=== PATIENT | male | born 1975 | race Caucasian/White ===

== ENCOUNTER 2018-11-24 13:11 | Emergency (ER) | payer MEDICARE, OTHER ==
[2018-11-24 13:22] VITALS: BP 123/82; PULSE 80; RESP 16; TEMP 97.7
[2018-11-24] MEDS ORDERED: KETOROLAC 30 MG/ML 1 ML VIAL IM STA (14:04)
--- NOTE | 2018-11-24 14:06 | ED ---
General Adult HPI - General Chief complaint: Extremity Problem,Nontraumatic Stated complaint: Rt wrist pain Source: patient, RN notes reviewed Mode of arrival: ambulatory Limitations: no limitations - History of Present Illness Initial comments: Patient is a 43-year-old male who presents to the emergency department with his mother with complaint of right wrist and left elbow pain. He states he has been having this pain off and on for quite a long time, but that his right wrist pain has worsened in the past 3 days. He has been taking Ten Sleep at home which is prescribed for his back, per patient. He states he was chopping wood prior to his right wrist hurting worse. Denies numbness and tingling. Patient denies any recent fever, chills, shortness of breath, chest pain, abdominal pain , nausea or vomiting, headaches or visual changes, or any other complaints. - Related Data Home Medications Medication Instructions Recorded Confirmed No Known Home Medications 11/24/18 11/24/18 Allergies Allergy/AdvReac Type Severity Reaction Status Date / Time No Known Allergies Allergy Verified 11/24/18 13:22 Review of Systems ROS Statement: Those systems with pertinent positive or pertinent negative responses have been documented in the HPI. ROS Other: All systems not noted in ROS Statement are negative. Past Medical History Past Medical History: Sleep Apnea/CPAP/BIPAP Additional Past Medical History / Comment(s): currently has hemorrhoids and abdominal gas pain, back pain, degenerative disk, kidney stone,no cpap History of Any Multi-Drug Resistant Organisms: None Reported Past Surgical History: Orthopedic Surgery Additional Past Surgical History / Comment(s): arthroscopy Past Anesthesia/Blood Transfusion Reactions: No Reported Reaction Past Psychological History: No Psychological Hx Reported Smoking Status: Current every day smoker Past Alcohol Use History: None Reported Past Drug Use History: Marijuana - Past Family History Father Family Medical History: Cancer Additional Family Medical History / Comment(s): lung Mother Family Medical History: Diabetes Mellitus General Exam Limitations: no limitations General appearance: alert, in no apparent distress Head exam: Present: atraumatic, normocephalic Eye exam: Present: normal appearance Respiratory exam: Present: normal lung sounds bilaterally. Absent: wheezes, rales, rhonchi Cardiovascular Exam: Present: regular rate, normal rhythm Extremities exam: Present: normal inspection, normal capillary refill, other ( Radial pulses palpable and strong bilaterally. Sensation intact bilateral upper extremities. Bilateral elbows full ROM. Right wrist ROM slightly limited.). Absent: tenderness (No tenderness to palpation.) Neurological exam: Present: alert, oriented X3 Skin exam: Present: warm, dry Course Vital Signs 11/24/18 13:20 Temperature 97.7 F Pulse Rate 80 Respiratory 16 Rate Blood Pressure 123/82 O2 Sat by Pulse 98 Oximetry Medical Decision Making - Medical Decision Making Patient given Toradol here. X-ray of left elbow is negative. X-ray of right wrist is negative aside from previous fracture involving base of the fifth metacarpal. Patient admits that he did have a fracture in the past. Splint was offered, patient refused. Patient is to follow-up with orthopedics. Case discussed in detail with attending physician Dr. Sibley. Disposition Clinical Impression: Chronic elbow pain, Chronic wrist pain Disposition: HOME SELF-CARE Condition: Good Instructions (If sedation given, give patient instructions): Chronic Pain (ED) Additional Instructions: Follow-up with your primary care provider and orthopedics in 1-2 days. Return to the emergency department if your symptoms worsen or other concerns Is patient prescribed a controlled substance at d/c from ED?: No Referrals: Jamie Zhu MD [Primary Care Provider] - 1-2 days Alphonso Zafar MD [STAFF PHYSICIAN] - 1-2 days Time of Disposition: 15:36
--- NOTE | 2018-11-24 14:59 | XR ---
EXAMINATION TYPE: XR wrist complete RT DATE OF EXAM: 11/24/2018 COMPARISON: NONE HISTORY: Pain TECHNIQUE: Four views submitted. FINDINGS: The osseous structures are intact. The joint spaces are preserved and there is no acute fracture or dislocation. There is a chronic appearing deformity at the base of the fifth metacarpal. IMPRESSION: 1. No definite acute fracture or dislocation if symptoms persist, follow-up study in 7 to 10 days wo uld be suggested. 2. Correlate for previous fracture involving base fifth metacarpal.
--- NOTE | 2018-11-24 15:00 | XR ---
EXAMINATION TYPE: XR elbow complete LT DATE OF EXAM: 11/24/2018 COMPARISON: NONE HISTORY: Pain FINDINGS: Three views of the elbow demonstrate no pathologic joint effusion. The osseous structures are intact . There is no acute fracture or dislocation. IMPRESSION: 1. No acute fracture or dislocation. If symptoms persist follow-up study in 7 to 10 days could be ob tained.
== END 2018-11-24 15:47 | disposition home or self-care (01) ==
LOC: EC 13:11
DX: G89.29 Other chronic pain (principal); M25.531 Pain in right wrist; M25.522 Pain in left elbow; Z87.81 Personal history of (healed) traumatic fracture; G47.30 Sleep apnea, unspecified; F17.200 Nicotine dependence, unspecified, uncomplicated; Z99.89 Dependence on other enabling machines and devices; Z53.20 Procedure and treatment not carried out because of patient's decision for unspecified reasons
CPT/HCPCS: 99283; 96372; 73080; 73110; J1885

== ENCOUNTER 2019-06-12 12:46 | Emergency (ER) | payer MEDICARE ==
[2019-06-12 12:54] VITALS: BP 100/67; PULSE 71; RESP 18; TEMP 98.1
[2019-06-12] MEDS ORDERED: DIPH,PERTUS(ACELL)TETVAC-LF 0.5 ML VIAL IM ONE (13:03)
[2019-06-12] MEDS ORDERED: HYDROmorphone 1 MG/ML 1 ML SYRINGE IVP STA (13:10)
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
[2019-06-12 13:24] LABS: Basophils # (A) 0.1 k/uL (0-0.2); Basophils % (A) 1 %; Eosinophils # (A) 0.2 k/uL (0-0.7); Eosinophils % (A) 1 %; HCT 44.7 % (39.0-53.0); HGB 15.1 gm/dL (13.0-17.5); Lymphocytes # (A) 2.2 k/uL (1.0-4.8); Lymphocytes % (A) 17 %; MCH 31.3 pg (25.0-35.0); MCHC 33.8 g/dL (31.0-37.0); MCV 92.6 fL (80.0-100.0); Mean Platelet Volume 6.8; Monocytes # (A) 0.5 k/uL (0-1.0); Monocytes % (A) 4 %; Neutrophils # (A) 9.9 k/uL (1.3-7.7); Neutrophils % (A) 76 %; Platelet Count 269 k/uL (150-450); RBC 4.83 m/uL (4.30-5.90); RDW 15.3 % (11.5-15.5); WBC 12.9 k/uL (3.8-10.6)
[2019-06-12 13:29] LABS: ALT 23 U/L (21-72); AST 40 U/L (17-59); African American GFR (CKD) >90 (>60 ml/min/1.73 sqM); Albumin 4.3 g/dL (3.5-5.0); Alcohol <10 mg/dL; Alkaline Phosphatase 74 U/L (38-126); Amylase 62 U/L (30-110); Anion Gap 8 mmol/L; Blood Urea Nitrogen 18 mg/dL (9-20); Calcium 9.5 mg/dL (8.4-10.2); Carbon Dioxide 27 mmol/L (22-30); Chloride 104 mmol/L (98-107); Glucose 137 mg/dL (74-99); Potassium 4.5 mmol/L (3.5-5.1); Sodium 139 mmol/L (137-145); Total Bilirubin 0.4 mg/dL (0.2-1.3); Total Protein 7.9 g/dL (6.3-8.2)
[2019-06-12 13:36] LABS: INR 0.9 (<1.2); Partial Thromboplastin Time 22.5 sec (22.0-30.0); Prothrombin Time 9.6 sec (9.0-12.0)
[2019-06-12 13:37] LABS: Creatine Kinase 150 U/L (55-170)
[2019-06-12] MEDS ORDERED: LORazepam 2 MG/ML INJ IV STA (13:37)
[2019-06-12 13:50] LABS: Creatine Kinase MB 1.1 ng/mL (0.0-2.4); Troponin I <0.012 ng/mL (0.000-0.034)
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
[2019-06-12 14:42] LABS: Appearance,Urine Clear (Clear); Bilirubin,Urine Negative (Negative); Blood,Urine Negative (Negative); Color,Urine Light Yellow; Glucose,Urine (UA) Negative (Negative); Ketones,Urine Negative (Negative); Leukocyte Esterase,Urine Negative (Negative); Nitrite,Urine Negative (Negative); Protein,Urine Negative (Negative); Urobilinogen,Urine <2.0 mg/dL (<2.0)
[2019-06-12 14:52] LABS: Amphetamine Screen,Urine Not Detected (NotDetected); Barbiturate Screen,Urine Not Detected (NotDetected); Benzodiazepines Screen,Urine Detected (NotDetected); Cocaine Screen,Urine Not Detected (NotDetected); Methadone Screen, Urine Not Detected (NotDetected); Opiate Screen,Urine Detected (NotDetected); Oxycodone Screen, Urine Not Detected (NotDetected); Phencyclidine Screen,Urine Not Detected (NotDetected); Tricyclic Antidepressant,Urine Not Detected (NotDetected); Urn Cannabinoid Scrn Detected (NotDetected)
[2019-06-12 15:01] LABS: Specific Gravity,Urine >1.050 (1.001-1.035)
== END 2019-06-12 14:57 | disposition home or self-care (01) ==
LOC: EC 12:46
DX: S20.219A Contusion of unspecified front wall of thorax, initial encounter (principal); S00.81XA Abrasion of other part of head, initial encounter; S90.512A Abrasion, left ankle, initial encounter; Z23 Encounter for immunization; M94.0 Chondrocostal junction syndrome [Tietze]; G47.30 Sleep apnea, unspecified; F17.200 Nicotine dependence, unspecified, uncomplicated; Z79.899 Other long term (current) drug therapy; V86.59XA Driver of other special all-terrain or other off-road motor vehicle injured in nontraffic accident, initial encounter
CPT/HCPCS: 36415; 93005; 86900; 86901; 80053; 82150; 82550; 82553; 83605; 83690; 84484; 85025; 85610; 85730; 86850; 81003; 80306; 72170; 71045; 72125; 70450; 71260; 74177; 90715; 99285; 96374; 96375; 90471; G0480; J2060; J1170; Q9967; 80320

== ENCOUNTER → 2019-10-18 | Outpatient (CLI) | payer MEDICARE ==
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
== END | disposition home or self-care (01) ==
LOC: RADXRMAIN 11:42
PROVIDERS: ATTEND Family Medicine
DX: S52.501D Unspecified fracture of the lower end of right radius, subsequent encounter for closed fracture with routine healing (principal)

== ENCOUNTER 2022-04-27 09:36 | Emergency (ER) | payer MEDICARE ==
[2022-04-27 09:52] VITALS: RESP 18
[2022-04-27] MEDS ORDERED: DIPH,PERTUS(ACELL)TETVAC-LF 0.5 ML VIAL IM ONE (09:57)
[2022-04-27] MEDS ORDERED: HYDROmorphone 0.5 MG/0.5 ML SYRINGE IVP STA ×2 (09:59→10:49)
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
[2022-04-27 10:12] LABS: Glucose,Whole Blood 135 mg/dL (70-110)
[2022-04-27 10:16] LABS: Basophils % (A) 0 %; Eosinophils # (A) 0.1 k/uL (0-0.7); Eosinophils % (A) 0 %; HCT 39.1 % (39.0-53.0); HGB 13.3 gm/dL (13.0-17.5); Lymphocytes # (A) 1.1 k/uL (1.0-4.8); Lymphocytes % (A) 6 %; MCH 32.8 pg (25.0-35.0); MCHC 34.1 g/dL (31.0-37.0); MCV 96.3 fL (80.0-100.0); Mean Platelet Volume 6.9; Monocytes # (A) 0.9 k/uL (0-1.0); Monocytes % (A) 5 %; Neutrophils % (A) 88 %; Platelet Count 306 k/uL (150-450); RBC 4.06 m/uL (4.30-5.90); RDW 13.5 % (11.5-15.5); WBC 18.2 k/uL (3.8-10.6)
[2022-04-27 10:31] LABS: ALT 81 U/L (4-49); AST 117 U/L (17-59); African American GFR (CKD) >90 (>60 ml/min/1.73 sqM); Albumin 4.5 g/dL (3.5-5.0); Alcohol <10 mg/dL; Alkaline Phosphatase 104 U/L (38-126); Anion Gap 7 mmol/L; Blood Urea Nitrogen 14 mg/dL (9-20); Calcium 8.8 mg/dL (8.4-10.2); Carbon Dioxide 24 mmol/L (22-30); Chloride 101 mmol/L (98-107); Glucose 128 mg/dL (74-99); Non-African American GFR(CKD) >90 (>60 ml/min/1.73 sqM); Potassium 4.2 mmol/L (3.5-5.1); Sodium 132 mmol/L (137-145); Total Bilirubin 0.6 mg/dL (0.2-1.3); Total Protein 7.4 g/dL (6.3-8.2)
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
[2022-04-27 10:42] LABS: INR 0.9 (<1.2); Prothrombin Time 9.9 sec (9.0-12.0)
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
[2022-04-27] MEDS ORDERED: DEXAMETHASONE SOD PHOSPHATE 10 MG/ML 1 ML VIAL IV STA (11:11)
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
[2022-04-27 11:32] LABS: Appearance,Urine Clear (Clear); Bilirubin,Urine Negative (Negative); Blood,Urine Negative (Negative); Color,Urine Yellow; Glucose,Urine (UA) Negative (Negative); Ketones,Urine Negative (Negative); Leukocyte Esterase,Urine Negative (Negative); Nitrite,Urine Negative (Negative); Protein,Urine Trace (Negative); Specific Gravity,Urine 1.041 (1.001-1.035); Urobilinogen,Urine <2.0 mg/dL (<2.0)
[2022-04-27 11:52] LABS: Amphetamine Screen,Urine Not Detected (NotDetected); Barbiturate Screen,Urine Not Detected (NotDetected); Benzodiazepines Screen,Urine Not Detected (NotDetected); Cocaine Screen,Urine Not Detected (NotDetected); Methadone Screen, Urine Not Detected (NotDetected); Opiate Screen,Urine Not Detected (NotDetected); Oxycodone Screen, Urine Not Detected (NotDetected); Phencyclidine Screen,Urine Not Detected (NotDetected); Tricyclic Antidepressant,Urine Not Detected (NotDetected); Urn Cannabinoid Scrn Detected (NotDetected)
[2022-04-27 12:33] VITALS: BP 117/84; PULSE 90; TEMP 98.2
== END 2022-04-27 11:56 | disposition other institution (70) ==
LOC: EC 09:36
DX: S12.600A Unspecified displaced fracture of seventh cervical vertebra, initial encounter for closed fracture (principal); S42.101A Fracture of unspecified part of scapula, right shoulder, initial encounter for closed fracture; S81.812A Laceration without foreign body, left lower leg, initial encounter; F17.200 Nicotine dependence, unspecified, uncomplicated; Z23 Encounter for immunization; V26.4XXA Motorcycle driver injured in collision with other nonmotor vehicle in traffic accident, initial encounter
CPT/HCPCS: 36415; 86900; 86901; 80053; 84484; 85025; 85610; 85730; 86850; 81003; 80306; 72170; 71045; 72125; 70450; 71260; 74177; 90715; 99291; 96365; 96375; 96376; 90471; G0480; J1100; J0690; J1170; Q9967; 80320

== ENCOUNTER → 2022-06-12 | Outpatient (CLI) | payer MEDICARE, OTHER ==
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
== END | disposition home or self-care (01) ==
LOC: RADCTMAIN 16:48
PROVIDERS: ATTEND Nurse Practitioner Family
DX: S12.9XXA Fracture of neck, unspecified, initial encounter (principal); X58.XXXA Exposure to other specified factors, initial encounter
CPT/HCPCS: 72125

== ENCOUNTER → 2022-06-26 | Outpatient (CLI) | payer MEDICARE, OTHER ==
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
== END | disposition home or self-care (01) ==
LOC: RADMRIMAIN 17:21
PROVIDERS: ATTEND Nurse Practitioner Family
DX: M75.101 Unspecified rotator cuff tear or rupture of right shoulder, not specified as traumatic (principal); M25.411 Effusion, right shoulder

== ENCOUNTER → 2023-05-05 | Outpatient (CLI) | payer MEDICARE, OTHER ==
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
== END | disposition home or self-care (01) ==
LOC: RADMRIMAIN 17:50
PROVIDERS: ATTEND Orthopaedic Surgery
DX: M75.112 Incomplete rotator cuff tear or rupture of left shoulder, not specified as traumatic (principal); M25.812 Other specified joint disorders, left shoulder; M19.012 Primary osteoarthritis, left shoulder

== ENCOUNTER → 2023-12-30 | Outpatient (CLI) | payer MEDICARE, OTHER ==
[2023-12-30 18:50] LABS: Basophils # (A) 0.05 X 10*3/uL (0.00-0.10); Basophils % (A) 0.4 %; Eosinophils % (A) 1.7 %; HCT 45.2 % (39.6-50.0); HGB 15.6 g/dL (13.0-17.0); Lymphocytes % (A) 27.5 %; MCH 30.4 pg (27.0-32.0); MCHC 34.5 g/dL (32.0-37.0); MCV 88.1 FL (80.0-97.0); Mean Platelet Volume 9.1 FL (9.5-12.2); Monocytes # (A) 0.82 X 10*3/uL (0.20-1.00); Monocytes % (A) 6.8 %; NRBC Per 100 WBC 0 X 10*3/uL (0.00-0.01); Neutrophils # (A) 7.59 X 10*3/uL (1.80-7.70); Neutrophils % (A) 63.3 %; Platelet Count 338 X 10*3/uL (140-440); RBC 5.13 X 10*6/uL (4.40-5.60); RDW 13.8 % (11.5-14.5)
[2023-12-30 19:10] LABS: Anion Gap 11.5 mmol/L (4.00-12.00); Carbon Dioxide 22.5 mmol/L (21.6-31.8); Potassium 4.6 mmol/L (3.5-5.5)
== END | disposition home or self-care (01) ==
LOC: LABPAT 15:18
PROVIDERS: ATTEND Orthopaedic Surgery
DX: Z01.812 Encounter for preprocedural laboratory examination (principal); M23.91 Unspecified internal derangement of right knee
CPT/HCPCS: 36415; 80051; 85025

== ENCOUNTER 2024-01-27 08:58 | Day surgery (SDC) | payer MEDICARE, OTHER ==
[2024-01-25 14:35] VITALS: BMI 22.0
--- NOTE | 2024-01-26 10:03 | HP ---
HISTORY AND PHYSICAL DATE OF SURGERY: 01/27/2024. HISTORY OF PRESENT ILLNESS: Efrain Corral is a 48-year-old gentleman, seen with progressive right knee pain. We discussed options. He elected to proceed with a right knee arthroscopy. Consent was obtained. PAST MEDICAL HISTORY: Noncontributory. PAST SURGICAL HISTORY: Spinal fusion. DAILY MEDICATIONS: 1. Cymbalta. 2. Hydrocodone. 3. Robaxin. ALLERGIES: None. SOCIAL HISTORY: Smokes cigarettes. PHYSICAL EVALUATION OF THE RIGHT KNEE: His range of motion is 0 to 125 degrees. Mild effusion. Tenderness, medial joint line. Positive medial Evin's. +1 Nova. Collateral ligaments are stable. Distal neurovascular exam is intact. IMAGING STUDIES: Radiographs of the right knee revealed mild osteoarthritis. IMPRESSION: Internal derangement of right knee with medial meniscal tear. PLAN: Right knee arthroscopy with partial medial meniscectomy and debridement. MMODL / IJN: [id number] /
[~2024-01-27 08:58] MED LIST: HYDROmorphone 0.5 MG/0.5 ML SYRINGE IVP PRN; LIDOCAINE 1% (10MG/ML) FOR IV START INTRADERMA PRN; droPERidol 5 MG/2 ML VIAL IVP ONE
[2024-01-27] MEDS: LACTATED RINGERS 1,000 ML IV SCH (10:05)
[2024-01-27] MEDS: DEXAMETHASONE SOD PHOSPHATE 4 MG/ML 1 ML VIAL IV ONE (10:10)
[2024-01-27] MEDS: ONDANSETRON 4 MG/2 ML VIAL IVP ONE (10:11)
[2024-01-27] MEDS ORDERED: MIDAZOLAM 2 MG/2 ML VIAL ONE (10:41)
[2024-01-27] MEDS ORDERED: fentaNYL (PF) 50 MCG/ML 2 ML AMP ONE (10:41)
[2024-01-27] MEDS ORDERED: PROPOFOL 10 MG/ML 20 ML VIAL IV ONE (10:41)
[2024-01-27] MEDS ORDERED: LIDOCAINE 1% INJ 10MG/ML (20 ML MDV) ONE (10:41)
[2024-01-27] MEDS: BUPIVACAINE (PF) 0.25% 30 ML VIAL SQ ONE ×2 (11:06→11:16)
--- NOTE | 2024-01-27 11:35 | P.OP ---
Date of Procedure: 01/27/24 Preoperative Diagnosis: Internal derangement right knee Postoperative Diagnosis: 1. Tear medial and lateral meniscus right knee 2. Reactive synovitis medial, lateral and suprapatellar compartments right knee Procedure(s) Performed: 1. Arthroscopic partial medial and lateral meniscectomy right knee 2. Arthroscopic partial synovectomy medial, lateral and suprapatellar compartments right knee Anesthesia: GETA, local Surgeon: Perez Lundberg Estimated Blood Loss (ml): 5 Pathology: none sent Condition: stable Disposition: PACU Indications for Procedure: 48-year-old patient seen with progressive right knee pain. After having treatment options discussed, he elected to proceed with arthroscopy. Operative Findings: See description of procedure Description of Procedure: Patient was taken to the operative suite. Patient underwent a general anesthetic by the department of anesthesia. Patient was given preoperative antibiotics. The right lower extremity was placed in a well-padded arthroscopic leg farmer. The right leg was prepped and draped in the normal sterile orthopedic fashion. A lateral parapatellar and suprapatellar incision was made. Trochars were inserted. Arthroscopy was initiated. Suprapatellar pouch revealed diffuse thick reactive synovitis. The patellofemoral joint appeared to articular congruently. There was no chondromalacia present. The scope was guided into the medial gutter. No loose bodies or plica were identified. The scope was then guided into the medial compartment. A medial parapatellar incision was made. Trocar inserted followed by probe. There was a complex tear involving the posterior horn and mid bodies of the medial meniscus. There was mild grade I chondromalacia of the tibial plateau. There was thick reactive synovitis anteriorly. I performed a partial medial meniscectomy getting down to stable meniscal tissue. I performed a partial synovectomy decompressing the reactive synovitis. The residual meniscus was probed and was found to be stable. There was good decompression of the synovitis. Scope and probe were then guided into the intercondylar notch. Cruciates were identified, probed and found to be stable. The scope and probe were then guided into lateral compartment. There was a radial tear involving the mid body lateral meniscus as well as a radial tear posterior horn lateral meniscus. There was no chondromalacia. There was thick reactive synovitis anteriorly. I performed a partial lateral meniscectomy getting down to stable meniscal tissue. I performed a partial synovectomy decompressing the reactive synovitis. The residual meniscus was stable. There was good decompression of the synovitis. The scope was in guided back into the suprapatellar compartment. I introduced a motorized shaver into the suprapatellar compartment. I debrided some piecemeal fragments of meniscus that I encountered. I performed a partial synovectomy. The shaver was now removed. There was good decompression of the synovitis. I now took 1 more look around the entire knee, no residual debris. Instruments were now removed from the joint. The joint was infiltrated with .25% Marcaine. Steri-Strips were applied to the portal sites. Sterile dressings were applied. The patient was placed into a RYLEE hose. No tourniquet was utilized. The patient was awakened, transferred to a bed and taken to recovery stable satisfactory condition.
[2024-01-27 11:38] VITALS: TEMP 97.4
[2024-01-27 12:29] VITALS: BP 110/74; PULSE 61; RESP 16
== END 2024-01-27 12:51 | disposition home or self-care (01) ==
LOC: OR 08:58
PROVIDERS: ATTEND Orthopaedic Surgery
DX: S83.241A Other tear of medial meniscus, current injury, right knee, initial encounter (principal); S83.281A Other tear of lateral meniscus, current injury, right knee, initial encounter; M17.11 Unilateral primary osteoarthritis, right knee; M65.861 Other synovitis and tenosynovitis, right lower leg; M94.261 Chondromalacia, right knee; F17.210 Nicotine dependence, cigarettes, uncomplicated; X58.XXXA Exposure to other specified factors, initial encounter; Z79.899 Other long term (current) drug therapy
CPT/HCPCS: 29880; J2250; J1100; J0690; J2405; J2001; J3010; J2704; J0665

== ENCOUNTER → 2024-03-22 | Outpatient (CLI) | payer MEDICARE, OTHER ==
[2024-03-22 18:51] LABS: Basophils # (A) 0.06 X 10*3/uL (0.00-0.10); Basophils % (A) 0.7 %; Eosinophils # (A) 0.31 X 10*3/uL (0.04-0.35); Eosinophils % (A) 3.7 %; HCT 43.4 % (39.6-50.0); HGB 14.8 g/dL (13.0-17.0); Lymphocytes # (A) 2.34 X 10*3/uL (0.90-5.00); Lymphocytes % (A) 28.2 %; MCH 30.6 pg (27.0-32.0); MCHC 34.1 g/dL (32.0-37.0); MCV 89.7 FL (80.0-97.0); Mean Platelet Volume 9.4 FL (9.5-12.2); Monocytes # (A) 0.53 X 10*3/uL (0.20-1.00); Monocytes % (A) 6.4 %; NRBC Per 100 WBC 0 X 10*3/uL (0.00-0.01); Neutrophils # (A) 5.04 X 10*3/uL (1.80-7.70); Neutrophils % (A) 60.8 %; Platelet Count 303 X 10*3/uL (140-440); RBC 4.84 X 10*6/uL (4.40-5.60); RDW 13.9 % (11.5-14.5)
[2024-03-23 02:37] LABS: Anion Gap 11.1 mmol/L (4.00-12.00); Carbon Dioxide 22.9 mmol/L (21.6-31.8); Potassium 4.8 mmol/L (3.5-5.5)
== END | disposition home or self-care (01) ==
LOC: LABPAT 15:49
PROVIDERS: ATTEND Orthopaedic Surgery
DX: Z01.812 Encounter for preprocedural laboratory examination (principal); M23.92 Unspecified internal derangement of left knee
CPT/HCPCS: 80051; 85025

== ENCOUNTER 2024-03-23 09:06 | Day surgery (SDC) | payer MEDICARE, OTHER ==
--- NOTE | 2024-03-22 13:45 | HP ---
HISTORY AND PHYSICAL DATE OF SURGERY: 03/23/2024. HISTORY OF PRESENT ILLNESS: Efrain Corral is a 48-year-old gentleman, seen with progressive left knee pain. We discussed options regarding treatment. He elected to proceed with left knee arthroscopy. Consent was obtained. PAST MEDICAL HISTORY: Noncontributory. PAST SURGICAL HISTORY: Spinal fusion and ACL reconstruction. DAILY MEDICATIONS: Cymbalta. ALLERGIES: None. SOCIAL HISTORY: Smokes cigarettes. PHYSICAL EVALUATION OF THE LEFT KNEE: His range of motion is 0 to 130 degrees. Mild effusion is present. Tenderness along the medial joint line. Positive medial Evin's. His ligaments are stable. His distal neurovascular exam is intact. IMAGING STUDIES: Radiographs of the left knee revealed mild osteoarthritic changes. No evidence of previous ACL reconstruction. IMPRESSION: Internal derangement, left knee with medial meniscal tear. PLAN: Left knee arthroscopy with partial medial meniscectomy and debridement. MMODL / IJN: [id number] /
[~2024-03-23 09:06] MED LIST changes: -droPERidol 5 MG/2 ML VIAL IVP ONE
[2024-03-23] MEDS: LACTATED RINGERS 1,000 ML IV SCH (09:43)
[2024-03-23] MEDS: IV FLUID CONTINUATION 1,000 ML IV ONE (09:43)
[2024-03-23] MEDS: ONDANSETRON 4 MG/2 ML VIAL IVP ONE (09:54)
[2024-03-23] MEDS ORDERED: fentaNYL (PF) 50 MCG/ML 2 ML AMP ONE (10:33)
[2024-03-23] MEDS ORDERED: KETOROLAC 15 MG/ML 1 ML VIAL ONE (10:33)
[2024-03-23] MEDS ORDERED: KETAMINE HCL IN 0.9 % NACL 50 MG/5 ML SYRINGE ONE (10:33)
[2024-03-23] MEDS ORDERED: PROPOFOL 10 MG/ML 20 ML VIAL IV ONE (10:33)
[2024-03-23] MEDS ORDERED: LIDOCAINE 1% INJ 10MG/ML (20 ML MDV) ONE (10:33)
[2024-03-23] MEDS ORDERED: MIDAZOLAM 2 MG/2 ML VIAL ONE (10:33)
[2024-03-23] MEDS: BUPIVACAINE (PF) 0.25% 30 ML VIAL MISCELLANE ONE ×2 (10:57→11:11)
--- NOTE | 2024-03-23 11:32 | P.OP ---
Date of Procedure: 03/23/24 Preoperative Diagnosis: Internal derangement left knee Postoperative Diagnosis: 1. Tear medial and lateral meniscus left knee 2. Reactive synovitis medial, lateral and suprapatellar compartments left knee 3. Partial ACL graft tear left knee Procedure(s) Performed: 1. Arthroscopic partial medial and lateral meniscectomy left knee 2. Arthroscopic partial synovectomy medial, lateral and suprapatellar compartments left knee 3. Arthroscopic debridement partial ACL graft tear left knee Anesthesia: MAGUIA, local Surgeon: Perez Lundberg Estimated Blood Loss (ml): 6 Pathology: none sent Condition: stable Disposition: PACU Indications for Procedure: 48-year-old patient seen with progressive left knee pain. After having treatment options discussed, he elected to proceed with arthroscopy. Operative Findings: See description of procedure Description of Procedure: Patient was taken to the operative suite. Patient underwent a general anesthetic by the department of anesthesia. Patient was given preoperative antibiotics. The left lower extremity was placed in a well-padded arthroscopic leg farmer. The left leg was prepped and draped in the normal sterile orthopedic fashion. A lateral parapatellar and suprapatellar incision was made. Trochars were inserted. Arthroscopy was initiated. Suprapatellar pouch revealed diffuse thick reactive synovitis. The patellofemoral joint appeared to articular congruently. There was no chondromalacia present. The scope was guided into the medial gutter. No loose bodies or plica were identified. The scope was then guided into the medial compartment. A medial parapatellar incision was made. Trocar inserted followed by probe. There was a complex tear involving the posterior horn and mid body of the medial meniscus. There was thick reactive synovitis anteriorly. There was no significant chondromalacia present. I performed a partial medial meniscectomy getting down to stable meniscal tissue. I performed a partial synovectomy decompressing the reactive synovitis. The residual meniscus was stable. There was good decompression of the synovitis. Scope and probe were then guided into the intercondylar notch. There was evidence of previous ACL reconstruction with some partial tearing of the graft on the lateral side. I used a motorized shaver and debrided the. The remaining graft was stable and provided excellent stability to the knee.. The scope and probe were then guided into lateral compartment. There was a radial tear mid bilateral meniscus. There was thick reactive synovitis anteriorly. There was no chondromalacia. I performed a partial lateral meniscectomy getting down to stable meniscal tissue. I performed a partial synovectomy decompressing the reactive synovitis. The residual meniscus was stable. There was good decompression of the synovitis. The scope was in guided back into the suprapatellar compartment. I used a motorized shaver into the suprapatellar compartment. I debrided some piecemeal fragments of meniscus I encountered. I performed a partial synovectomy. The shaver was removed. There was good decompression of the synovitis. I took 1 more look around the entire knee, no residual debris. Instruments were now removed from the joint. The joint was infiltrated with .25% Marcaine. Steri-Strips were applied to the portal sites. Sterile dressings were applied. The patient was placed into a RYLEE hose. No tourniquet was utilized. The patient was awakened, transferred to a bed and taken to recovery stable satisfactory condition.
[2024-03-23 11:37] VITALS: TEMP 96.3
[2024-03-23 12:16] VITALS: RESP 18
[2024-03-23 12:39] VITALS: BP 125/67; PULSE 67
== END 2024-03-23 12:49 | disposition home or self-care (01) ==
LOC: OR 09:06
PROVIDERS: ATTEND Orthopaedic Surgery
DX: S83.232A Complex tear of medial meniscus, current injury, left knee, initial encounter (principal); S83.282A Other tear of lateral meniscus, current injury, left knee, initial encounter; S83.512A Sprain of anterior cruciate ligament of left knee, initial encounter; M65.862 Other synovitis and tenosynovitis, left lower leg; G47.33 Obstructive sleep apnea (adult) (pediatric); F41.8 Other specified anxiety disorders; F17.290 Nicotine dependence, other tobacco product, uncomplicated; F17.210 Nicotine dependence, cigarettes, uncomplicated; Z79.899 Other long term (current) drug therapy; X58.XXXA Exposure to other specified factors, initial encounter
CPT/HCPCS: 29880; 29876; J2250; J0690; J2405; J2001; J3010; J1885; J2704; J0665

== ENCOUNTER → 2024-12-14 | Outpatient (CLI) | payer MEDICARE, OTHER ==
[2024-12-14 20:50] LABS: ALT 25 U/L (10-49); AST 27 U/L (14-35); Albumin 4.3 g/dL (3.8-4.9); Albumin/Globulin Ratio 1.48 Ratio (1.60-3.17); Alkaline Phosphatase 117 U/L (41-126); BUN/Creat Ratio 15.89 Ratio (12.00-20.00); Blood Urea Nitrogen 14.3 mg/dL (9.0-27.0); Calcium 9.6 mg/dL (8.7-10.3); Carbon Dioxide 24.3 mmol/L (21.6-31.8); Chloride 103 mmol/L (96-109); Chol/HDL Ratio 4.84 Ratio; Globulin 2.9 g/dL (1.6-3.3); Glucose 104 mg/dL (70-110); LDL Cholesterol,Calculated 165.6 mg/dL (0.0-131.0); Potassium 5.1 mmol/L (3.5-5.5); Prostate Specific Antigen 1.39 ng/mL (0.000-3.500); Sodium 138 mmol/L (135-145); Total Bilirubin 0.3 mg/dL (0.3-1.2); Total Protein 7.2 g/dL (6.2-8.2); VLDL Calculation 18.48 mg/dL (5.00-40.00)
[2024-12-14 21:33] LABS: Basophils # (A) 0.08 X 10*3/uL (0.00-0.10); Basophils % (A) 0.8 %; Eosinophils # (A) 0.29 X 10*3/uL (0.04-0.35); Eosinophils % (A) 2.9 %; HCT 46.3 % (39.6-50.0); Lymphocytes # (A) 2.53 X 10*3/uL (0.90-5.00); MCH 30.7 pg (27.0-32.0); MCHC 34.6 g/dL (32.0-37.0); MCV 88.7 FL (80.0-97.0); Mean Platelet Volume 10.2 FL (9.5-12.2); Monocytes # (A) 0.55 X 10*3/uL (0.20-1.00); Monocytes % (A) 5.4 %; NRBC Per 100 WBC 0 X 10*3/uL (0.00-0.01); Neutrophils # (A) 6.65 X 10*3/uL (1.80-7.70); Neutrophils % (A) 65.5 %; Platelet Count 375 X 10*3/uL (140-440); RBC 5.22 X 10*6/uL (4.40-5.60); RDW 14.1 % (11.5-14.5); WBC 10.14 X 10*3/uL (4.50-10.00)
== END | disposition home or self-care (01) ==
LOC: LABWHC1 14:36
PROVIDERS: ATTEND Family Medicine
DX: Z00.00 Encounter for general adult medical examination without abnormal findings (principal); M43.22 Fusion of spine, cervical region; B00.1 Herpesviral vesicular dermatitis; F33.9 Major depressive disorder, recurrent, unspecified; R07.81 Pleurodynia; F17.210 Nicotine dependence, cigarettes, uncomplicated; Z79.891 Long term (current) use of opiate analgesic
CPT/HCPCS: 36415; 80053; 80061; 84153; 84443; 85025

== ENCOUNTER 2025-04-17 20:16 | Emergency (ER) | payer MEDICARE, OTHER ==
--- NOTE | 2025-04-17 22:05 | ED ---
General Adult HPI - General Chief complaint: Wound/Laceration Stated complaint: Head Laceration Time Seen by Provider: 04/17/25 21:19 Source: patient, RN notes reviewed Mode of arrival: ambulatory Limitations: no limitations - History of Present Illness Initial comments: 49-year-old male presents to the emergency department for evaluation of scalp laceration. Patient states that he was walking under a tree branch when he cut his head on a branch. He does state that he had a hat on. He reports that he is up-to-date on tetanus vaccine. He denies any loss of consciousness, headache. - Related Data Home Medications Medication Instructions Recorded Confirmed DULoxetine HCL [Cymbalta] 60 mg PO QAM 06/12/19 03/23/24 HYDROcodone/APAP 10-325MG [Ulysses 1 - 1.5 tab PO BID PRN 06/12/19 03/23/24 10-325] Lyrica (Unknown Dose) 1 tab PO BID 01/25/24 03/23/24 Allergies Allergy/AdvReac Type Severity Reaction Status Date / Time No Known Allergies Allergy Verified 04/17/25 21:08 Review of Systems ROS Statement: Those systems with pertinent positive or pertinent negative responses have been documented in the HPI. ROS Other: All systems not noted in ROS Statement are negative. Past Medical History Past Medical History: Musculoskeletal Disorder, Osteoarthritis (OA), Sleep Apnea/CPAP/BIPAP Additional Past Medical History / Comment(s): Back pain, degenerative disc disease, hx kidney stone, no CPAP use. History of Any Multi-Drug Resistant Organisms: None Reported Past Surgical History: Orthopedic Surgery Additional Past Surgical History / Comment(s): Neck fusion, ACL replacement - left knee. Right knee arthroscopy, meniscus repair 01/27/24. Past Anesthesia/Blood Transfusion Reactions: No Reported Reaction Past Psychological History: Anxiety, Depression Smoking Status: Current every day smoker, Vaper Past Alcohol Use History: None Reported Past Drug Use History: Marijuana - Past Family History Father Family Medical History: Cancer Additional Family Medical History / Comment(s): Lung cancer. Mother Family Medical History: Diabetes Mellitus General Exam Limitations: no limitations General appearance: alert, in no apparent distress Head exam: Present: other (2.5 cm laceration to the scalp) Eye exam: Present: normal appearance, PERRL, EOMI. Absent: scleral icterus, conjunctival injection, periorbital swelling ENT exam: Present: normal exam, mucous membranes moist Respiratory exam: Present: normal lung sounds bilaterally. Absent: respiratory distress, wheezes, rales, rhonchi, stridor Cardiovascular Exam: Present: regular rate, normal rhythm, normal heart sounds. Absent: systolic murmur, diastolic murmur, rubs, gallop, clicks Extremities exam: Present: normal inspection, full ROM, normal capillary refill. Absent: tenderness, pedal edema, joint swelling, calf tenderness Neurological exam: Present: alert, oriented X3, CN II-XII intact Psychiatric exam: Present: normal affect, normal mood Skin exam: Present: warm, dry, normal color. Absent: intact Course Vital Signs 04/17/25 04/17/25 21:06 23:17 Temperature 98 F 98.1 F Pulse Rate 85 82 Respiratory 16 15 Rate Blood Pressure 120/86 124/78 O2 Sat by Pulse 98 98 Oximetry Procedures - Laceration Laceration #1 Consent Obtained: verbal consent Indication: laceration Site: scalp Size (cm): 2 Description: linear Depth: simple, single layer Pre-repair: wound explored Type of Sutures: other (Dayday) Size of Sutures: other Number of Sutures: 5 Patient Tolerated Procedure: well, no complications Medical Decision Making - Medical Decision Making Was pt. sent in by a medical professional or institution (ANA MARÍA Corado, DRIVER [employer]UC[employer] INSTRUCTOR, urgent care, hospital, or correction...) When possible be specific @ -No Did you speak to anyone other than the patient for history (EMS, parent, family, police, friend...)? What history was obtained from this source @ -No Did you review nursing and triage notes (agree or disagree)? Why? @ -I reviewed and agree with nursing and triage notes Were old charts reviewed (outside hosp., previous admission, EMS record, old EKG, old radiological studies, urgent care reports/EKG's, correction records)? Report findings @ -No old charts were reviewed Differential Diagnosis (chest pain, altered mental status, abdominal pain women, abdominal pain men, vaginal bleeding, weakness, fever, dyspnea, syncope, headache, dizziness, GI bleed, back pain, seizure, CVA, palpatations, mental health, musculoskeletal)? @ -Laceration, abrasion, tetanus prophylaxis, this list is not all inclusive EKG interpreted by me (3pts min.). @ -None X-rays interpreted by me (1pt min.). @ -None done CT interpreted by me (1pt min.). @ -None done U/S interpreted by me (1pt. min.). @ -None done What testing was considered but not performed or refused? (CT, X-rays, U/S, labs)? Why? @ -None What meds were considered but not given or refused? Why? @ -None Did you discuss the management of the patient with other professionals (professionals i.e. , PA, DRIVER EDUC[employer] INSTRUCTOR, lab, RT, psych nurse, vp digital marketing social media and crm, steamfitter, teacher, special loan officer, geriatric case manager)? Give summary @ -No Was smoking cessation discussed for >3mins.? @ -No Was critical care preformed (if so, how long)? @ -No Were there social determinants of health that impacted care today? How? (Homelessness, low income, unemployed, alcoholism, drug addiction, transportation, low edu. Level, literacy, decrease access to med. care, fpc, rehab)? @ -No Was there de-escalation of care discussed even if they declined (Discuss DNR or withdrawal of care, Hospice)? DNR status @ -No What co-morbidities impacted this encounter? (DM, HTN, Smoking, COPD, CAD, Cancer, CVA, ARF, Chemo, Hep., AIDS, mental health diagnosis, sleep apnea, morbid obesity)? @ -None Was patient admitted / discharged? Hospital course, mention meds given and route, prescriptions, significant lab abnormalities, going to OR and other pertinent info. @ -Discharge. Patient presented emergency department for evaluation of scalp laceration. Patient is up-to-date on tetanus vaccine. The area was cleaned, let was applied. Wound was stapled. Advised on staple care and removal time. He is understanding agreeable to plan. Patient stable at time of discharge. Case discussed with Dr. Duarte Undiagnosed new problem with uncertain prognosis? @ -No Drug Therapy requiring intensive monitoring for toxicity (Heparin, Nitro, Insulin, Cardizem)? @ -No Were any procedures done? @ -No Diagnosis/symptom? @ -Laceration Acute, or Chronic, or Acute on Chronic? @ -Acute Uncomplicated (without systemic symptoms) or Complicated (systemic symptoms)? @ -Uncomplicated Side effects of treatment? @ -No Exacerbation, Progression, or Severe Exacerbation? @ -No Poses a threat to life or bodily function? How? (Chest pain, [place], [place], pneumonia, PE, COPD, DKA, ARF, appy, cholecystitis, CVA, Diverticulitis, Homicidal, Suicidal, threat to staff... and all critical care pts) @ -No Disposition Clinical Impression: Laceration Disposition: HOME SELF-CARE Condition: Stable Instructions (If sedation given, give patient instructions): Staple Care (ED) Additional Instructions: Please have dayday removed in 7-10 days. Follow up with your doctor. Return to the emergency department for new or worsening symptoms. Is patient prescribed a controlled substance at d/c from ED?: No Referrals: Jamie Zhu MD [Primary Care Provider] - 1-2 days
[2025-04-17] MEDS: LIDOCAINE/EPINEPHR/TETRACAINE 5 ML BOTTLE TOPICAL ONE (22:22)
[2025-04-17 23:19] VITALS: BP 124/78; PULSE 82; RESP 15; TEMP 98.1
== END 2025-04-17 23:18 | disposition home or self-care (01) ==
LOC: EC 20:16
DX: S01.01XA Laceration without foreign body of scalp, initial encounter (principal); F17.290 Nicotine dependence, other tobacco product, uncomplicated; W45.8XXA Other foreign body or object entering through skin, initial encounter; Y93.01 Activity, walking, marching and hiking
CPT/HCPCS: 12001; 99282